=== PATIENT | female | born 1965 | race Caucasian/White ===

== ENCOUNTER 2017-07-07 12:26 | Emergency (ER) | payer SELFPAY ==
[2017-07-07] MEDS ORDERED: HYDROcodone/Acetaminophen 5/325 mg Tablet ONE (13:08)
--- NOTE | 2017-07-07 18:37 | RAD ---
LEFT ANKLE THREE VIEWS: 07/07/2017 A nondisplaced fracture through the lateral malleolus is present with overlying soft tissue swelling. The ankle mortise is not widened. The distal tibia and talus appear intact. No other fractures we re seen. IMPRESSION: Nondisplaced lateral malleolar fracture. POS: HOME
== END 2017-07-07 13:11 | disposition home or self-care (01) ==
LOC: BURERS 12:26
DX: S82.65XA Nondisplaced fracture of lateral malleolus of left fibula, initial encounter for closed fracture (principal); F17.210 Nicotine dependence, cigarettes, uncomplicated; X50.1XXA Overexertion from prolonged static or awkward postures, initial encounter

== ENCOUNTER 2017-08-18 13:59 | Outpatient (CLI) | payer SELFPAY ==
--- NOTE | 2017-08-18 20:44 | RAD ---
LEFT ANKLE THREE VIEWS 08/18/17 Comparison is made with the 07/07/17 study. The fracture of the lateral malleolus seems ununited as of yet. The fracture fragment may have displa fela laterally just a hair. The remainder of the ankle appears intact. IMPRESSION: Ununited fracture of the lateral malleolus. Code T POS: HOME
--- NOTE | 2017-08-19 07:29 | RAD ---
LEFT FOOT THREE VIEWS 08/18/17 No fracture, dislocation, or acute bony change was seen within the foot itself. The lateral malleolar fracture is visible on at least one of the views. An areas of slight sclerosis in the fourth metatar nasrin neck does not appear acute. A bony density is seen just medial to the tarsal naviculare. It is mo st likely just an os naviculare and can be taken as such unless there is point tenderness here. IMPRESSION: No acute findings in the foot. POS: HOME
== END 2017-08-18 14:00 | disposition home or self-care (01) ==
LOC: BUR/OP 13:59
PROVIDERS: ATTEND Physician Assistant
DX: S82.65XD Nondisplaced fracture of lateral malleolus of left fibula, subsequent encounter for closed fracture with routine healing (principal)

== ENCOUNTER 2019-12-16 09:48 | Outpatient (CLI) | payer SELFPAY ==
--- NOTE | 2019-12-16 14:08 | RAD ---
LEFT HAND 3 VIEWS: DATE: 12/16/2019. FINDINGS: Prominent arthritic changes are seen in the 1st carpometacarpal joint between the trapezium and 1st m etacarpal. There is some mild deformity of the base of the 1st metacarpal which could signify prior trauma here. There is abundant bony overgrowth and osteophytes as a result. The remainder of the hand appears intact. The other joints and other carpal bones were unremarkable. IMPRESSION: Prominent arthritic changes in the 1st carpometacarpal joint. POS: HOME
== END 2019-12-16 09:49 | disposition home or self-care (01) ==
LOC: BURRAD 09:48
PROVIDERS: ATTEND Physician Assistant
DX: M79.642 Pain in left hand (principal); M18.12 Unilateral primary osteoarthritis of first carpometacarpal joint, left hand

== ENCOUNTER 2020-11-27 10:36 | Outpatient (CLI) | payer OTHER | END 2020-11-27 10:37 | disposition home or self-care (01) | LOC: BURRAD 10:36 | PROVIDERS: ATTEND Registered Nurse Community Health | DX: M79.641 Pain in right hand (principal); M79.642 Pain in left hand; M79.89 Other specified soft tissue disorders; M18.12 Unilateral primary osteoarthritis of first carpometacarpal joint, left hand ==

== ENCOUNTER 2024-06-26 12:08 | Emergency (ER) | payer SELFPAY ==
[2024-06-26] MEDS ORDERED: HYDROcodone/Acetaminophen 5/325 mg Tablet ONE (12:47)
[2024-06-26] MEDS ORDERED: predniSONE 20 MG TAB ONE (12:48)
== END 2024-06-26 12:55 | disposition home or self-care (01) ==
LOC: BURERS 12:08
DX: S39.012A Strain of muscle, fascia and tendon of lower back, initial encounter (principal); F17.210 Nicotine dependence, cigarettes, uncomplicated
CPT/HCPCS: 99283; J7512

== ENCOUNTER 2024-09-19 11:33 | Emergency (ER) | payer OTHER ==
[2024-09-19] MEDS ORDERED: Ibuprofen 200 MG TAB ONE (11:56)
== END 2024-09-19 12:23 | disposition home or self-care (01) ==
LOC: BURERS 11:33
DX: S53.402A Unspecified sprain of left elbow, initial encounter (principal); K21.9 Gastro-esophageal reflux disease without esophagitis; F17.210 Nicotine dependence, cigarettes, uncomplicated; W19.XXXA Unspecified fall, initial encounter; Y99.0 Civilian activity done for income or pay; Z79.899 Other long term (current) drug therapy
CPT/HCPCS: 99283